=== PATIENT | female | born 1985 | race Hispanic/Latino ===

== ENCOUNTER 2018-10-09 05:28 | Inpatient (IN) | payer OTHER ==
[2018-10-09] MEDS ORDERED: Promethazine HCl 25 MG/ML VIAL IM PRN ×3 (05:48→12:09)
[2018-10-09] MEDS ORDERED: Ondansetron PF 4 MG/2 ML Vial IVP PRN ×3 (05:48→12:09)
[2018-10-09] MEDS ORDERED: hydrALAZINE 20 MG/ML VIAL SLOW IVP PRN ×2 (05:48→12:09)
[2018-10-09] MEDS ORDERED: CEFAZOLIN 3 GM in Premix Bag 1 BAG IVPB SCH (05:48)
[2018-10-09 05:56] VITALS: BMI 47.2
[2018-10-09] MEDS ORDERED: Azithromycin 500 MG in Sodium Chloride 0.9% 250 ML 250 ML IVPB SCH (06:00)
[2018-10-09] MEDS ORDERED: Bicitra 30 ML UDCUP PO SCH (06:00)
[2018-10-09 06:21] LABS: Hemoglobin 11.2 g/dL (12.0-16.0); Mean Corpuscular HGB CONC 33.5 g/dL (32.0-36.0); Mean Corpuscular Hemoglobin 25.7 pg (27.0-31.0); Mean Corpuscular Volume 76.8 fL (78.0-98.0); Mean Platelet Volume 8.8 fL (7.4-10.4); Platelet Count 260 thou/uL (130-400); RBC Distribution Width 15.9 % (11.5-14.5); Red Blood Cell (RBC) Count 4.36 mill/uL (4.20-5.40); White Blood Cell (WBC) Count 10.5 thou/uL (4.8-10.8)
[2018-10-09] MEDS: Lactated Ringer's 1,000 ML IV SCH ×2 (06:22→07:33)
[2018-10-09] MEDS ORDERED: CEFAZOLIN 3 GM, Admixture Fee 1 EACH in Sodium Chloride 0.9% 100 ML IVPB SCH (06:30)
[2018-10-09 07:01] LABS: Syphilis Antibody Nonreactive (Nonreactive); Syphilis Antibody Index 0.05 S/CO (<1.00 Non-Reactive)
[2018-10-09 07:22] LABS: HBSAg Index 0.26 S/CO (0-0.99); Hep B Surf Ag Non-Reactive S/CO (NonReactive)
[2018-10-09] MEDS ORDERED: MORPHINE 5 MG/10 ML PF VIAL ONE (07:45)
[2018-10-09] MEDS ORDERED: ePHEDrine/0.9% NaCl/PF SYRINGE 50 mg/10 ml ONE (07:46)
[2018-10-09] MEDS ORDERED: Dexamethasone 4 mg/ml Vial ONE (07:46)
[2018-10-09] MEDS ORDERED: Ketorolac Tromethamine 30 MG/ML VIAL ONE ×2 (07:46→11:29)
[2018-10-09] MEDS ORDERED: Oxytocin 10 UNITS/ML VIAL ONE (07:46)
[2018-10-09] MEDS ORDERED: Ondansetron PF 4 MG/2 ML Vial ONE (07:46)
[2018-10-09] MEDS ORDERED: Lidocaine 2% PF 5 ML VIAL ONE (07:56)
[2018-10-09] MEDS ORDERED: Methylergonovine 0.2 MG/ML VIAL ONE (08:34)
[2018-10-09] MEDS ORDERED: Ketorolac Tromethamine 30 MG/ML VIAL IVP SCH ×2 (08:45)
[2018-10-09] MEDS ORDERED: Naloxone HCl 0.4 mg/ml Vial IVP PRN ×2 (08:45)
[2018-10-09] MEDS ORDERED: Naloxone HCl 0.4 mg/ml Vial IV PRN (08:45)
[2018-10-09] MEDS ORDERED: HYDROmorphone 2 MG/ML VIAL SLOW IVP PRN (08:45)
[2018-10-09] MEDS ORDERED: Ondansetron HCl/PF 4 MG/2 ML Vial IVP PRN (08:45)
[2018-10-09] MEDS ORDERED: diphenhydrAMINE 50 MG/ML VIAL IVP PRN (08:45)
[2018-10-09] MEDS ORDERED: Promethazine HCl 25 MG SUPP PR PRN (08:45)
[2018-10-09] MEDS ORDERED: L&D-Morphine 4 MG/ML VIAL SLOW IVP PRN (08:45)
[2018-10-09] MEDS ORDERED: Meperidine HCl/PF 25 MG/ML VIAL SLOW IVP PRN (08:45)
[2018-10-09] MEDS ORDERED: Communication Order-Pharmacy FS SCH (08:45)
[2018-10-09] MEDS ORDERED: Morphine 2 MG/ML SYRINGE SLOW IVP PRN (09:13)
[2018-10-09] MEDS ORDERED: Methylergonovine 0.2 MG/ML VIAL IM SCH (12:00)
[2018-10-09] MEDS ORDERED: NS / Oxytocin 40 units/1000ml 1,000 ML IV SCH (12:09)
[2018-10-09] MEDS ORDERED: Adacel (T-DAP) 0.5 ML SYRINGE IM ONE (12:09)
[2018-10-09] MEDS ORDERED: Lanolin Ointment 7 GM TUBE TOP PRN (12:09)
[2018-10-09] MEDS ORDERED: Simethicone Chewable 80 MG TAB PO PRN (12:09)
[2018-10-09] MEDS ORDERED: diphenhydrAMINE 25 MG CAP PO PRN (12:09)
[2018-10-09] MEDS ORDERED: Sodium Chloride 0.9% 10 ML ONE (14:42)
[2018-10-09] MEDS: Ketorolac Tromethamine 30 MG/ML VIAL IVP SCH ×2 (14:45→23:49)
[2018-10-09] MEDS: Prenatal Vitamin 1 TAB PO SCH (14:45)
[2018-10-09] MEDS: Ferrous Sulfate 325 MG TAB PO SCH ×2 (14:45→17:19)
[2018-10-09] MEDS: metFORMIN 500 MG TAB PO SCH (17:12)
[2018-10-09] MEDS ORDERED: Meperidine HCl/PF 25 MG/ML VIAL IM PRN (20:45)
[2018-10-09] MEDS ORDERED: HYDROcodone/Acetaminophen 5/325 mg Tablet PO PRN (20:45)
[2018-10-09] MEDS: HYDROcodone/Acetaminophen 5/325 mg Tablet PO PRN (23:48)
[2018-10-10] MEDS: HYDROcodone/Acetaminophen 5/325 mg Tablet PO PRN ×4 (03:28→19:18)
[2018-10-10] MEDS: Ketorolac Tromethamine 30 MG/ML VIAL IVP SCH (03:31)
[2018-10-10 05:17] LABS: Hemoglobin 8.9 g/dL (12.0-16.0); Mean Corpuscular HGB CONC 33.3 g/dL (32.0-36.0); Mean Corpuscular Hemoglobin 26.1 pg (27.0-31.0); Mean Corpuscular Volume 78.4 fL (78.0-98.0); Mean Platelet Volume 8.4 fL (7.4-10.4); Platelet Count 235 thou/uL (130-400); Red Blood Cell (RBC) Count 3.42 mill/uL (4.20-5.40); White Blood Cell (WBC) Count 8.9 thou/uL (4.8-10.8)
[2018-10-10] MEDS: Ibuprofen 800 MG TAB PO PRN ×3 (06:16→22:09)
[2018-10-10] MEDS: Ferrous Sulfate 325 MG TAB PO SCH ×2 (09:16→15:56)
[2018-10-10] MEDS: Prenatal Vitamin 1 TAB PO SCH (09:17)
[2018-10-10] MEDS: metFORMIN 500 MG TAB PO SCH ×2 (09:17→15:56)
[2018-10-10] MEDS ORDERED: Ibuprofen 800 MG TAB PO SCH (14:00)
[2018-10-11] MEDS: HYDROcodone/Acetaminophen 5/325 mg Tablet PO PRN ×4 (04:25→19:32)
[2018-10-11] MEDS: Ibuprofen 800 MG TAB PO PRN ×2 (05:29→14:10)
[2018-10-11] MEDS: metFORMIN 500 MG TAB PO SCH ×2 (09:31→17:23)
[2018-10-11] MEDS: Ferrous Sulfate 325 MG TAB PO SCH ×2 (09:32→17:23)
[2018-10-11] MEDS: Prenatal Vitamin 1 TAB PO SCH (09:32)
[2018-10-11] MEDS ORDERED: metFORMIN 500 MG TAB PO SCH ×2 (12:20→12:30)
[2018-10-12] MEDS: HYDROcodone/Acetaminophen 5/325 mg Tablet PO PRN ×3 (01:56→16:12)
[2018-10-12] MEDS ORDERED: Sodium Chloride 0.9% 10 ML ONE (06:15)
[2018-10-12] MEDS: Ibuprofen 800 MG TAB PO PRN ×2 (06:21→16:12)
[2018-10-12 08:06] VITALS: BP 115/61; TEMP 98
[2018-10-12] MEDS: Prenatal Vitamin 1 TAB PO SCH (08:29)
[2018-10-12] MEDS: Ferrous Sulfate 325 MG TAB PO SCH ×2 (08:29→18:13)
[2018-10-12] MEDS: metFORMIN 500 MG TAB PO SCH ×2 (08:30→18:14)
--- NOTE | 2018-10-12 09:45 | OP ---
DATE OF PROCEDURE: 10/09/2018 RESIDENT SURGEON: Sweetie El DO PROCEDURE PERFORMED: Repeat low-transverse section. PREOPERATIVE DIAGNOSES: 1. Term intrauterine . 2. History of previous section x2. 3. Morbid obesity. 4. Pregestational DM POSTOPERATIVE DIAGNOSES: 1. Term intrauterine , delivered. 2. History of previous section x2. 3. Morbid obesity. 4. Pregestational DM ANESTHESIA: Spinal. INDICATIONS: This is a 33-year-old G4, P2012 at 37.1 weeks gestation, who presented for repeat scheduled . PROCEDURE IN DETAIL: After risks, benefits, and alternatives were explained to the patient, she gave informed consent. Preoperative antibiotics included cefazolin 2 g IV. The patient was taken to the operating room and spinal anesthesia was initiated. She was placed in the supine position with a left tilt, prepped and draped in the usual sterile fashion. A Pfannenstiel incision was made with scalpel and carried down to the level of the fascia, which was sharply nicked. The fascial cut was extended bilaterally with Hui scissors. The inferior and superior edges of the cut fascial edges were elevated with Angelina clamps and underlying rectus muscles were sharply and bluntly dissected free. The recti were divided digitally and retracted manually. The peritoneum was entered bluntly and retracted manually. Bladder blade was placed. The low transverse score was made with a scalpel. The uterus was entered in the midline with the scalpel. Clear fluid was seen. The hysterotomy was extended manually. was noted to be vertex and was easily delivered by fundal pressure. Mouth and nares were bulb suctioned. Cord was clamped and cut and grossly normal. Male infant was seen, handed to the waiting nurse. Cord blood was obtained. Placenta was manually extracted, found to be intact with three-vessel cord and discarded. The uterus was externalized and endometrium was curetted with a dry lap. The bladder blade was placed and the uterus was closed with a running locking 0 Vicryl suture x2. Following this, hemostasis was noted. The abdomen was irrigated with saline and suctioned free of clot. The uterus was internalized and hysterotomy was again noted to be hemostatic. The fascia was closed with a running nonlocking 0 PDS suture x2. The subcutaneous tissue was irrigated and bleeders were cauterized. The subcutaneous tissue was approximated using 3-0 Vicryl. The skin was approximated with isaac and pressure dressing was placed. All counts were correct. The patient tolerated the procedure well, was taken to the recovery room in stable condition. ESTIMATED BLOOD LOSS: 710 mL. COMPLICATIONS: None. SPECIMENS: Cord blood sent to the lab for blood type. FINDINGS: Grossly normal male with Apgars of 9 and 9 at 1 and 5 minutes respectively. Grossly normal placenta with 3-vessel cord discarded. DRAINS: Gilbert to gravity, draining clear urine. Job ID: [id number] [facility]
== END 2018-10-12 18:58 | disposition home or self-care (01) | DRG 786 ==
LOC: L&D 05:28 → 3SW 12:09
PROVIDERS: ADMIT Family Medicine; ATTEND Family Medicine
PROC: 10D00Z1 Extraction of Products of Conception, Low, Open Approach (ICD-10-PCS; principal; 2018-10-09)
DX: O34.211 Maternal care for low transverse scar from previous cesarean delivery (principal); O24.12 Pre-existing type 2 diabetes mellitus, in childbirth; O99.214 Obesity complicating childbirth; E11.9 Type 2 diabetes mellitus without complications; O32.1XX0 Maternal care for breech presentation, not applicable or unspecified; E66.01 Morbid (severe) obesity due to excess calories; Z3A.37 37 weeks gestation of pregnancy; Z37.0 Single live birth; Z79.4 Long term (current) use of insulin
CPT/HCPCS: 36415; 36416; 51702; 85027; 86780; 86850; 86900; 86901; 87340; J0456; J0690; J1100; J1885; J2001; J2210; J2274; J2405; J2590; J3490; J7050